=== PATIENT | female | born 1970 | race Asian ===

== ENCOUNTER 2019-05-08 08:44 | Day surgery (SDC) | payer OTHER, SELFPAY ==
[2019-05-08] VITALS (8 sets, daily range): BP systolic 91–112; BP diastolic 62–71; PULSE 60–69; RESP 15–20; TEMP 36.2–36.7; O2SAT 93–99; BMI 29.3
--- NOTE | 2019-05-08 | PATH_ITS ---
[facility] Accession Number: [id number] . 01 Material submitted: . PART A: colon - POLYP LEFT COLON PART B: colon - POLYP TRANSVERSE COLON . 01 Clinical history: . ENCOUNTER FOR SCREENING FOR MALIGNANT NEOPLASM . 02 Diagnosis: A. Left Colon, Polyp: Colonic mucosa with prominent benign lymphoid aggregate and focal mucosal hyperplasia. Negative for dysplasia or malignancy. . B. Transverse Colon, Polyp: Tubular adenoma. V 05/11/2019 1030 Local . 02 Electronically signed: . Jarad Watkins MD, PhD, Pathologist NPI- [id number] . 01 Gross description: . Part A: POLYP LEFT COLON: Received in formalin is 1 fragment(s) of feliz, soft tissue measuring 0.3 x 0.2 x 0.2 cm which is entirely submitted and submitted entirely in 1 cassette(s) Part B: POLYP TRANSVERSE COLON: Received in formalin are 3 fragment(s) of feliz, soft tissue measuring 0.1 x 0.1 x 0.1 cm to 0.2 x 0.2 x 0.2 cm which is entirely submitted and submitted entirely in 1 cassette(s) /[facility] [place] 05/08/2019 1917 Local . 02 Pathologist provided ICD-10: D12.3, K63.5 . 02 CPT . 022910, 221018 Performed at: 01 [facility] [address], [place], [place] [id number] MD Stanley Schuler MD Phone: [phone] Performed at: 02 [facility] [address] [place], [place] [id number] MD Rossi Huerta MD Phone: [phone]
[2019-05-08] MEDS: SODIUM CHLORIDE 0.9% 1,000 ML 200 ML IV (09:23)
--- NOTE | 2019-05-08 09:28 | PM.HP.1 ---
History of Present Illness History of Present Illness Date Patient Seen: 05/08/19 Time Patient Seen: 09:28 Chief complaint: [id number] Narrative: 48-year-old woman presents for 1st ever screening colonoscopy No intestinal complaints No family history of colon or rectal cancers, no family history of colon polyps No history of Crohn's disease or ulcerative colitis personally or in family. Tolerated her breath Patient History Social History household members: spouse and family Family & Social History Social History: household members spouse,family Meds Home Medications and Allergies Home Medications Medication Instructions Recorded Confirmed Type atorvastatin 10 mg PO DAILY 05/08/19 05/08/19 History dulaglutide [Trulicity] 0.75 mg SUBCUT QWEEK 05/08/19 05/08/19 History empagliflozin [Jardiance] 10 mg PO DAILY 05/08/19 05/08/19 History lisinopril-hydrochlorothiazide 1 tab PO DAILY 05/08/19 05/08/19 History meloxicam 7.5 mg PO DAILY PRN 05/08/19 05/08/19 History metformin 500 mg PO BID 05/08/19 05/08/19 History Allergies Allergy/AdvReac Type Severity Reaction Status Date / Time No Known Drug Allergies Allergy Verified 05/08/19 09:05 Review of Systems Constitutional Constitutional: Denies fever(s) Eyes Eyes: Denies bulging eyes ENT Ears, Nose, Mouth, and Throat: No lip swelling Cardiovascular Cardiovascular: Denies generalize swelling Respiratory Respiratory: Denies stridor Gastrointestinal Gastrointestinal: Denies coffee ground emesis Musculoskeletal Musculoskeletal: Denies loss of height Integumentary/Breasts Skin/Breast: Denies wounds Neurologic Neurologic: Denies abnormal speech and Denies confusion Psychiatric Psychiatric: Denies confusion and Denies tactile hallucinations Endocrine Endocrine: Denies deepening of the voice Hematologic/Lymphatic Hematologic/Lymphatic: Denies lymphadenopathy Allergic/Immunologic Allergic/Immunologic: Denies lip swelling Exam Vital Signs (past 8 hours): - 05/08/19 09:18 Temperature 97.4 F L Pulse Rate 67 Respiratory Rate 16 Blood Pressure 100/71 Pulse Oximetry 99 Oxygen Delivery Method Room Air Const General: cooperative and healthy appearing Orientation: alert [facility] Head: normal to inspection Nose: nares normal Mouth: oral mucosae normal and lip normal Eyes Eyelids: eyelids normal Conjunctivae: conjunctivae normal Sclera: sclerae normal Neck Neck: supple and other (No thyromegally) Chest Chest: other (LCTAB , regular respiratory effort) Cardio Rhythm: regular rhythm Heart Sounds: S1 normal, S2 normal, no gallops, no murmurs and no rubs GI Other: Abdomen soft nontender nondistended, Pfannenstiel incision well healed Skin General: no rashes or lesions noted Neuro General: alert and awake Psych Appearance: grossly normal Affect: normal affect Assessment & Plan Assessment & Plan narrative: 48-year-old woman here for 1st ever screening colonoscopy Risks and benefits of procedure discussed Risks including bleeding, perforation, , hypoxia, missed lesion all discussed All questions answered Patient ready to proceed
--- NOTE | 2019-05-08 10:15 | PM.OP.ENDO ---
Operative Date/Time/Diagnoses Date of procedure: 05/08/19 Time of procedure: 10:15 Pre-op diagnosis: Colorectal cancer screening Post-op diagnosis: other Procedure & Clinicians Study performed: Screening colonoscopy-complete Cold biopsy forcep polypectomy x2, left colon, transverse colon Same procedure as scheduled: Yes Indications: 48-year-old woman without personal or family history of colorectal cancer or polyps presents for 1st ever screening colonoscopy. Surgeon: Ismael Carter Procedure Notes SCOAP/Timeout: Complete Procedure in detail: Patient was brought to the endoscopy suite a time-out was completed. She was sedated over the entire course of the procedure with 5 mg of midazolam and 150 micro g of fentanyl. A digital rectal exam was performed without concern. 160 cm colonoscope was introduced into the anus and advanced navigate and through the folds of the rectum and colon until the cecum was reached. This was done with minimal difficulty. The cecum was identified via a ileocecal valve that was quite prominent, a in appendiceal orifice as well as the crows foot. The colonoscope was then slowly withdrawn 2 small sessile lesions were identified 1 in the left colon the other in the transverse colon each was removed with a Jumbo polypectomy forcep without incident. The scope was then further withdrawn and retroflexed in the rectum. No additional lesions were identified Prep was adequate Patient tolerated the procedure well Scope withdrawal time: 23 Sedation minutes: 34 Specimen(s): other (Left colon lesion, transverse colon lesion.) Complications: none Impression: Polyps x2 -small sessile Post-procedure Recommendations: Colonscopy in 5 years Plan for aftercare: PACU then home Follow up: as needed Disposition: PACU
[2019-05-08] MEDS: fentaNYL 250 MCG/5 ML INJ IV (10:16)
[2019-05-08] MEDS: MIDAZOLAM 5 MG/5 ML VIAL IV (10:16)
--- NOTE | 2019-05-08 11:20 | SUR.PHASEII ---
at bedside, pt still sleepy Vss. Report to Ary Olmedo
--- NOTE | 2019-05-08 11:59 | SUR.PHASEII ---
Pt ready to go, assisted to dress, pt left when ready and left in stable condition.
== END 2019-05-08 12:00 | disposition home or self-care (01) ==
LOC: ENDO 08:48
PROVIDERS: PCP Registered Nurse Diabetes Educator; Visit Provider Surgery
PROC: 0DJD8ZZ Inspection of Lower Intestinal Tract, Via Natural or Artificial Opening Endoscopic (ICD-10-PCS; CPT 45378; principal; 2019-05-08 09:45)
DX: Z12.11 Encounter for screening for malignant neoplasm of colon (principal); D12.3 Benign neoplasm of transverse colon; K63.5 Polyp of colon
CPT/HCPCS: 45380; 99152; 99153; J2250; J3010

== ENCOUNTER → 2021-09-25 08:21 | Outpatient (CLI) | payer OTHER, SELFPAY ==
--- NOTE | 2021-09-25 | DI.MG.S_ITS ---
BILATERAL DIGITAL SCREENING MAMMOGRAM 3D/2D WITH CAD: 09/25/2021 CLINICAL: Routine screening. Comparison is made to exams dated: 12/11/2018 mammogram, 12/05/2017 mammogram, and 11/20/2016 mammogram - [facility]. There are scattered fibroglandular elements in both breasts. Current study was also evaluated with a Computer Aided Detection (CAD) system. No significant masses, calcifications, or other findings are seen in either breast. There has been no significant interval change. IMPRESSION: NEGATIVE There is no mammographic evidence of malignancy. A 1 year screening mammogram is recommended. This exam was interpreted at Station ID: [id number]. NOTE: For mammograms, a report in lay terms will be sent to the patient. Approximately 15% of breast malignancies will not be visualized mammographically. In the management of a palpable breast mass, a negative mammogram must not discourage biopsy of a clinically suspicious lesion. Electronically Signed By: Alex Mcnulty M.D., jr/george:09/25/2021 10:30:04 letter sent: Normal Exam ACR BI-RADS Category 1: Negative [id number]
== END ==
PROVIDERS: PCP Student in an Organized Health Care Education/Training Program; Referring Provider Registered Nurse Diabetes Educator; Visit Provider Registered Nurse Diabetes Educator
DX: Z12.31 Encounter for screening mammogram for malignant neoplasm of breast (principal)
CPT/HCPCS: 77063; 77067

== ENCOUNTER → 2024-01-09 10:01 | Outpatient (CLI) | payer OTHER, SELFPAY ==
--- NOTE | 2024-01-09 10:03 | DI.RAD.S_ITS ---
PROCEDURE: XR SHOULDER RT MIN 2V INDICATIONS: Cervical neck pain, cervical radiculopathy TECHNIQUE: 3 views of the shoulder were acquired. COMPARISON: None. FINDINGS: Bones: Mild glenohumeral and [id number] acromioclavicular degenerative changes. Soft tissues: Moderate calcific tendinopathy. IMPRESSION: Degenerative changes and calcific tendinopathy. No acute radiographic abnormality. If there is high concern for further derangement, consider MRI evaluation. Dictated by: Bryon Peoples M.D. on 01/09/2024 at 13:43 Approved by: Bryon Peoples M.D. on 01/09/2024 at 13:43
--- NOTE | 2024-01-09 10:03 | DI.RAD.S_ITS ---
PROCEDURE: XR CERVICAL SPINE 4V OR 5V INDICATIONS: Cervical neck pain, cervical radiculopathy, R shoulder pain TECHNIQUE: 5 views of the cervical spine were acquired. COMPARISON: None. FINDINGS: Bones: No fractures or dislocations to the T1 level. No suspicious bony lesions. There is restricted range of motion between flexion and extension, with preserved normal bony alignment. Soft tissues: Prevertebral soft tissues are normal in thickness. IMPRESSION: Restricted range of motion with flexion and extension, without significant degenerative disc disease. Dictated by: Juanjose Grover M.D. on 01/09/2024 at 10:30 Approved by: Juanjose Grover M.D. on 01/09/2024 at 10:30
== END ==
PROVIDERS: PCP Student in an Organized Health Care Education/Training Program; Referring Provider Physician Assistant Surgical; Visit Provider Physician Assistant Surgical
DX: M54.12 Radiculopathy, cervical region (principal); S49.90XA Unspecified injury of shoulder and upper arm, unspecified arm, initial encounter; X58.XXXA Exposure to other specified factors, initial encounter
CPT/HCPCS: 72050; 73030